=== PATIENT | female | born 1995 | race Caucasian/White ===

== ENCOUNTER 2024-01-12 12:30 | Inpatient (IN) | payer OTHER, SELFPAY ==
[2024-01-09 16:35] VITALS: BP 149/87
--- NOTE | 2024-01-09 17:03 | ED.GENMED ---
History of Present Illness
General
Chief Complaint: Abdominal Pain
Source: patient
Exam Limitations: none
Time Seen by Provider: 01/09/24 16:56
History of Present Illness
History of Present Illness:
See MDM
Past History
Past History
ED Past Medical History: None
ED Past Surgical History: Orthopedic (Groin surgery)
Social History
Tobacco: Smoker
Personal: Single
Phy Exam
Physical Exam
Physical Exam:
See MDM
Course
Orders/Labs/Results
Orders:
Orders
01/09/24 17:02
0.9% Sodium Chloride 1000 ml [Nss] 1,000 ml IV BOLUS
Ketorolac [Toradol] 30 mg IV NOW STA
Ondansetron Injectable [Zofran] 4 mg IV NOW STA
US Abdomen Complete/Upper Urgent
Comment:
Reason For Exam: RUQ pain
01/09/24 17:03
Test Result ONCE
01/09/24 17:12
Complete Blood Count/With Diff Urgent
Comprehensive Metabolic Panel Urgent
HCG, Serum Qualitative Screen Urgent
Lipase Urgent
Urinalysis Reflex To Culture Urgent
Date Specimen was Collected: 01/09/24
Time Specimen was Collected: 17:04
Urine Microscopic Reflex Cult Urgent
01/09/24 19:08
Consult Gastroenterology [GASTROINTESTINAL CONSULT] Routine
Consulting Provider: Nicola Wheat
Was physician already notified: Yes
Abnormal Lab Results
01/09/24
17:12
MCH 31.3 H pg
(27.0-31.0)
Absolute Neuts (auto) 7.8 H 10^3/uL
(1.4-6.5)
Absolute Lymphs (auto) 0.9 L 10^3/uL
(1.2-3.4)
Neutrophils % 84.2 H %
(42.2-75.2)
Lymphocytes % 10.1 L %
(20.5-51.1)
Carbon Dioxide 18 L mmol/L
(22-30)
Glucose 106 H mg/dl
(70-99)
Total Bilirubin 4.7 H mg/dl
(0.2-1.3)
AST 188 H U/L
(14-36)
ALT 396 H U/L
(0-35)
Alkaline Phosphatase 254 H U/L
(38-126)
Lipase 314 H U/L
(23-300)
Urine Ketones 3+ A
(Negative)
Urine Bilirubin 2+ A
(Negative)
Urine Urobilinogen 4+ A
(Neg - 1+)
Leukocyte Esterase Rfl Trace A
(Negative)
Urine Bacteria (Reflex) Few A
(Negative)
01/09/24 17:12
01/09/24 17:12
Vital Signs
Initial and Last Documented VS:
Initial Vital Signs
Temp Pulse Resp BP Pulse Ox
98.0 F 74 16 149/87 99
01/09/24 16:35 01/09/24 16:35 01/09/24 16:35 01/09/24 16:35 01/09/24 16:35
Last Documented Vital Signs
Temp Pulse Resp BP Pulse Ox
98.0 F 74 18 149/87 99
01/09/24 16:35 01/09/24 16:35 01/09/24 18:00 01/09/24 16:35 01/09/24 16:35
MDM/Problems Addressed
Differential Diagnosis Includes:
HPI and MDM Narrative:
28-year-old female presenting with upper abdominal pain, nausea, vomiting, back pain and discolored urine and stool. This has been going on for several days. She went to an outside hospital and was evaluated and received a chest x-ray and EKG.
She was sent home. Patient states she still having pain when she eats. She states her urine is dark and her stool is pale. On exam, she has significant right upper quadrant tenderness with localized rebound. We discussed that her symptoms are
more consistent with likely gallbladder pathology. Her lungs are clear. Her back pain is likely referred pain. Given her history and issues, will obtain right upper quadrant ultrasound, provide Toradol and Zofran and provide IV fluids.
Physical exam
General: Mildly uncomfortable
HEENT: protecting airway. Dry mucous membranes
Neck: appears supple
CV: No evidence of cyanosis
Resp: No accessory muscle use. Lungs clear
Abd: Non-distended. Point tenderness to right upper quadrant with localized rebound
Extremities: No deformities
Neuro: alert
Psych: Normal affect
Skin: Intact
Problems Addressed including Acute and Chronic Conditions affecting care:
1. [Right upper quadrant pain
Acuity: acute
Prognosis: stable
Details: Will obtain right upper quadrant ultrasound rule out gallbladder pathology. Patient given Toradol
2. Nausea and vomiting
Acuity: acute
Prognosis: stable
Details: Will give IV fluids and IV Zofran
Updates
Patient found to have elevated LFTs and bilirubin. Ultrasound consistent with possible acute calculus cholecystitis. Given the dilated common bile duct, this raises suspicion for choledocholithiasis. General surgery made aware who suggested admit
for MRCP and GI eval. GI made aware
Differential Diagnosis (but not limited to): Symptomatic cholelithiasis, acute calculus cholecystitis, pancreatitis
Testing considered: Abdominal CT
Drug therapy (if applicable): OTC meds, please see d/c instruction regarding Rx drugs
Amount and/or Complexity of Data Reviewed
Clinical info obtained from: Patient
External data reviewed: N/A
Labs I independently reviewed (but not limited to): Elevated LFTs
Radiology: Ultrasound port reviewed
Pulse Ox: not hypoxic
EKG independently reviewed: N/A
Blasting Worker: N/A
Critical Care: N/A
Risk of Complication:
Social Determinants of health: Good social support
Discussed with other providers: General surgeon, gastroenterology, hospitalist
Escalation of Care includes Admit/Obs: Given the concern for choledocholithiasis and acute cholecystitis, will admit for further evaluation
Occasional wrong word or 'sound a like' substitutions may have occurred due to the inherent limitations of voice recognition software. Read the chart carefully and recognize, using context, where substitutions have occurred.
*Critical Care Note
Total Time (30-74mins, 75-104mins- exclusive of procedures): Not Applicable
ED Attending Note
-
Portions of this chart may have been created with voice recognition software.� Occasional wrong word or��sound alike� substitutions may have occurred due to the inherent limitations of voice recognition software.
Discharge Plan
Departure
Patient Disposition: Admit
Date of Disposition: 01/09/24
Time of Disposition: 19:10
Presentation/result/management discussed w/ accepting MD/DO: Hospitalist
Discharge Problem:
Cholelithiasis, Choledocholithiasis
Prescriptions:
No Action
No Meds [No Current Medications]
0
Referrals:
NONE,* [Family Provider] -
Interventions
Interventions:
*Risk Screen - Suicide Last Done: 01/09/24 17:22
*General Assessment Last Done: 01/09/24 16:35
*Neglect/Abuse Screening Last Done: 01/09/24 17:22
ED- Fall Risk Assessment Last Done: 01/09/24 17:22
*ED COVID-19 Vaccine History Last Done: 01/09/24 16:35
WA-Omkcxl-Vxarmvlstv Assessment Last Done: 01/09/24 17:22
Discharge Date and Time
Print Language: TAJIK
[2024-01-09] MEDS: TORADOL 30 MG IV (17:11)
[2024-01-09] MEDS: NSS 1000 IV ×2 (17:11→21:13)
[2024-01-09] MEDS: ZOFRAN 4 MG IV (17:12)
[2024-01-09 17:23] LABS: % Basophils 0.6 % (0-2); % Eosinophils 0.4 % (0-6); % Immature Granulocytes 0.2 % (0-0.5); % Lymphocytes 10.1 % (20.5-51.1); % Monocytes 4.5 % (1.7-9.3); % Neutrophils 84.2 % (42.2-75.2); Absolute Basophils 0.1 10^3/uL (0-0.2); Absolute Lymphocytes 0.9 10^3/uL (1.2-3.4); Absolute Monocytes 0.4 10^3/uL (0.1-0.6); Absolute Neutrophils 7.8 10^3/uL (1.4-6.5); Hematocrit 39.7 % (37.0-47.0); Hemoglobin 13.6 g/dL (12.0-16.0); Mean Corp Hgb Conc. 34.3 g/dL (33.0-37.0); Mean Corpuscular Hgb 31.3 pg (27.0-31.0); Mean Corpuscular Volume 91.3 fL (81.0-99.0); Mean Platelet Volume 10.3 fL (7.4-10.4); Nucleated Red Blood Cells % 0 %; Platelet Count 328 10^3/uL (130-400); Red Blood Cell Count 4.35 10^6/uL (4.20-5.40); Red Cell Dist. Width 13.6 % (11.5-14.5); White Blood Cell Count 9.3 10^3/uL (4.8-10.8)
[2024-01-09 17:36] LABS: HCG, Serum Qualitative Screen Negative
[2024-01-09 17:50] LABS: ALT (SGPT) 396 U/L (0-35); AST (SGOT) 188 U/L (14-36); Albumin 4.8 g/dl (3.5-5.0); Alkaline Phosphatase 254 U/L (38-126); Blood Urea Nitrogen 7 mg/dl (7-17); Calcium 9.6 mg/dl (8.4-10.2); Carbon Dioxide 18 mmol/L (22-30); Chloride 104 mmol/L (98-107); Glucose 106 mg/dl (70-99); Lipase 314 U/L (23-300); Sodium 138 mmol/L (135-145); Total Bilirubin 4.7 mg/dl (0.2-1.3); Total Protein 7.4 g/dl (6.3-8.2); eGFR > 60.00
[2024-01-09 18:03] LABS: Urine Albumin Trace (Neg - Trace); Urine Bilirubin 2+ (Negative); Urine Character Clear (Clear); Urine Color Amber; Urine Glucose Negative (Negative); Urine Ketone 3+ (Negative); Urine Leukocyte Trace (Negative); Urine Nitrite Negative (Negative); Urine Occult Blood Negative (Negative); Urine Specific Gravity 1.025 (<1.030); Urine Urobilinogen 4+ (Neg - 1+)
[2024-01-09 18:29] LABS: Urine Mucus Few
[2024-01-09 18:30] LABS: Urine Bacteria Few (Negative); Urine Red Blood Cell 0-2 /HPF (0-2)
--- NOTE | 2024-01-09 19:17 | HPS.HSE ---
Family Physician
-
Family Physician: * NONE
Chief Complaint
-
abdominal pain, N/V
History of Present Illness
28F no significant PMHX seen at [facility] for evalauation of upper abdominal pain
- Increased pain with eating
- associate with nausea, vomiting, back pain and discolored urine and stool
- ongoing for several days.
Medical History
Past Medical History
Past Medical History: Reports None
Past Surgical History: Reports None
Social History
Tobacco: Smoker
Personal: Single
Family History
Family History: Not pertinent
Allergies / Home Medications
Allergies reflects when Allergies were last updated in [employer].
Home Medications with original date entered in [employer]
Allergy/Medication List:
Allergies
Allergy/AdvReac Type Severity Reaction Status Date / Time
No Known Allergies Allergy Verified 01/09/24 16:41
Home Medications
No Meds [No Current Medications] 0 05/26/12
Review of Systems
-
Constitutional: Reports No Symptoms
EENT: Reports No Symptoms
Respiratory: Reports No Symptoms
Cardiac: Reports No Symptoms
Abdomen/GI: Reports See HPI, Abdominal Pain, Nausea and Vomiting
: Reports No Symptoms
Musculoskeletal: Reports No Symptoms
Skin: Reports No Symptoms
Neurological: Reports No Symptoms
Endocrine: Reports No Symptoms
Hematologic/Lymphatic: Reports No Symptoms
Psych: Reports No Symptoms
Physical Exam
Vital Signs
Vital Signs
Temp Pulse Resp BP Pulse Ox
98.0 F 74 18 149/87 99
01/09/24 16:35 01/09/24 16:35 01/09/24 18:00 01/09/24 16:35 01/09/24 16:35
Physical Exam
General: Well Developed, Well Nourished, No Apparent Distress (not toxic looking ), Comfortable, Conversant and Other (Mildly uncomfortable)
HEENT: NormoCephalic, Moist mucous membranes and Atraumatic
Respiratory: Clear
Cardiac: S1/S2 and Regular Rhythm; No Murmur or Rub
GI: Soft, Non Distended, Normal Bowel Sounds and Tender ( Point tenderness to right upper quadrant with localized rebound); No Organomegaly
Rectal: Deferred by Provider
Musculoskeletal: No Clubbing, No Cyanosis and No Edema
Skin: No Rash
Neuro: Nonfocal/grossly intact
Psych: Calm
Laboratory Results
-
01/09/24 17:12
01/09/24 17:12
Laboratory Results
Total Bilirubin 4.7 mg/dl (0.2-1.3) H 01/09/24 17:12
AST 188 U/L (14-36) H 01/09/24 17:12
ALT 396 U/L (0-35) H 01/09/24 17:12
Alkaline Phosphatase 254 U/L (38-126) H 01/09/24 17:12
Lipase 314 U/L (23-300) H 01/09/24 17:12
Data Reviewed
-
Ultrasound: Report Reviewed by me
Lab Data: Labs Reviewed by me
Impression/Plan
-
Vital Signs
Temp Pulse Resp BP Pulse Ox
98.0 F 74 18 149/87 99
01/09/24 16:35 01/09/24 16:35 01/09/24 18:00 01/09/24 16:35 01/09/24 16:35
Laboratory Tests
01/09/24
17:12
WBC 9.3
Carbon Dioxide 18 L
Creatinine 0.6
eGFR > 60.00
Total Bilirubin 4.7 H
AST 188 H
ALT 396 H
Alkaline Phosphatase 254 H
Lipase 314 H
HCG, Qual Negative
US Abdomen Complete/Upper
1).There is cholelithiasis with mild thickening of the gallbladder wall to 3.5 mm suggesting possible cholecystitis
2). There is dilatation of the common duct to 10 mm with associated intrahepatic biliary dilatation suggesting choledocholithiasis.
No prior hospitalist admission: X
ASSESSMENT & PLAN
Biliary colic plus obstructive pattern abn LFT
Cholelithiasis
Concern for choledocholithiasis due to 10 mm CBD dilatation with associated intrahepatic biliary dilatation
Afebrile. Nl WCC
- Hold off ABx for now
- NPO after MN and IVF
- PRN narcotic analgesia plus PRN anti emetics
- trend T curve and CBC
- Trend LFTs and lipase
- for MRCP in AM
- GS consulted and suggest GI consult - ERCP in AM ?
DVT Px: SCD
Code: Full
Obs MS
[2024-01-09] MEDS: MORPHINE SULFATE 4 MG IV (19:19)
[2024-01-09 19:22] VITALS: BP 132/87
[2024-01-09 19:33] VITALS: BMI 23.5
[2024-01-09 20:15] VITALS: BP 114/72; BMI 23.1
[2024-01-09 23:10] VITALS: BP 109/63
[2024-01-09] MEDS: DILAUDID 0.5 MG IV (23:57)
[2024-01-10 07:54] VITALS: BP 112/63
[2024-01-10 08:11] LABS: INR 1.11; PT 14.1 Sec (11.4-14.6)
[2024-01-10 08:17] LABS: Hematocrit 33.6 % (37.0-47.0); Hemoglobin 11.3 g/dL (12.0-16.0); Mean Corp Hgb Conc. 33.6 g/dL (33.0-37.0); Mean Corpuscular Hgb 30.9 pg (27.0-31.0); Mean Corpuscular Volume 91.8 fL (81.0-99.0); Platelet Count 271 10^3/uL (130-400); Red Blood Cell Count 3.66 10^6/uL (4.20-5.40); Red Cell Dist. Width 13.8 % (11.5-14.5)
[2024-01-10 08:34] LABS: ALT (SGPT) 300 U/L (0-35); AST (SGOT) 128 U/L (14-36); Albumin 3.5 g/dl (3.5-5.0); Alkaline Phosphatase 194 U/L (38-126); Blood Urea Nitrogen 5 mg/dl (7-17); Calcium 8.7 mg/dl (8.4-10.2); Carbon Dioxide 20 mmol/L (22-30); Chloride 107 mmol/L (98-107); Estimated Creatinine Clearance > 125 ml/min; Glucose 99 mg/dl (70-99); Lipase 1961 U/L (23-300); Potassium 4.2 mmol/L (3.5-5.1); Sodium 137 mmol/L (135-145); Total Bilirubin 4.7 mg/dl (0.2-1.3); Total Protein 5.9 g/dl (6.3-8.2); eGFR > 60.00
[2024-01-10] MEDS: NSS 1000 IV (11:02)
--- NOTE | 2024-01-10 11:04 | W.PN.HOSP.TC ---
Addendum entered and electronically signed by Gildardo Gutierrez MD 01/10/24 13:21:
Updated patient and mother over the phone in details.
Addendum entered and electronically signed by Gildardo Gutierrez MD 01/10/24 11:32:
MRCP with finding
IMPRESSION:
1. CHOLEDOCHOLITHIASIS in the common bile duct.
2. EXTENSIVE CHOLELITHIASIS and 5.9 mm stone in the cystic duct.
3. Moderate intrahepatic and extrahepatic biliary dilatation with multiple biliary strictures mixed with regions of dilatation creating a 'beaded' appearance to the bile ducts. PRIMARY SCLEROSING CHOLANGITIS is a diagnostic possibility.
Alternatively, this could be secondary to acute or chronic infectious cholangitis.
Will start rocephin/flagyl
await further GI and GS recs
Original Note:
Today's Communication/Plan
-
Continue with IV fluids
Pain control
Trend CMP
Await further imaging data
Assessment / Plan
Assessment / Plan
Transaminitis likely secondary to biliary colic versus choledocholithiasis
Cholelithiasis
Concern for choledocholithiasis due to 10 mm CBD dilatation with associated intrahepatic biliary dilatation
Afebrile. Nl WCC
- Hold off ABx for now
- NPO
- PRN narcotic analgesia plus PRN anti emetics
- trend T curve and CBC
- Trend LFTs and lipase
- for MRCP today
- Lipase bumped-possibility of passing stone vs. obstruction. await further imaging data which will determine next steps
-
DVT Px: SCD
Code: Full
Anticipated Discharge: > 48 hours
Subjective/Interval History
-
Date of Service: January 10, 2024
States of epigastric and right upper quadrant abdominal pain
Objective Data
-
Labs:
Laboratory Results
01/10/24
05:43
WBC 4.0 L
Hgb 11.3 L
Hct 33.6 L
Plt Count 271
PT 14.1
INR 1.11
Sodium 137
Potassium 4.2
Chloride 107
Carbon Dioxide 20 L
BUN 5 L
Creatinine 0.5 L
Glucose 99
Calcium 8.7
Total Bilirubin 4.7 H
AST 128 H
ALT 300 H
Alkaline Phosphatase 194 H
Vital Signs:
Vital Signs
Temp Pulse Resp BP Pulse Ox
98.0 F 61 16 112/63 98
01/10/24 07:54 01/10/24 07:54 01/10/24 07:54 01/10/24 07:54 01/10/24 07:54
I&O
01/09/24 01/10/24 01/11/24
06:59 06:59 06:59
Intake Total 720 / 720
Balance 720 / 720
Physical Exam
-
General: Well Developed and No Apparent Distress
HEENT: Normocephalic, Atraumatic and Moist Mucous Membranes
Respiratory: Clear to Auscultation
Cardiac: Regular Rhythm and S1/S2; Negative Murmur, Rub or Gallop
GI: Soft, Nondistended, Normal Bowel Sounds and Tender (epigastric and RUQ ); Negative Organomegaly
Rectal: Deferred by Provider
Musculoskeletal: No Clubbing, No Cyanosis and No Edema
Skin: Negative Rash
Neuro: Awake, No Motor Deficits and Nonfocal/Grossly Intact
[2024-01-10] MEDS: STERILE WATER FOR INJECTION 10 ML IV (11:43)
[2024-01-10] MEDS: ROCEPHIN 1000 MG IV (11:44)
[2024-01-10] MEDS: FLAGYL 500 MG 100 IV ×2 (11:44→20:14)
--- NOTE | 2024-01-10 12:19 | CON.GS ---
Consultation
-
Requesting Provider: Jose De Jesus
Performing Provider: Ruth
Reason for Consultation: Abd pain
Medical History
-
Chief Complaint: Abd pain/back pain
History of Present Illness:
28F with acute onset epigastric pain radiating to her back, felt like squeezing pain wrapped around her upper body, denies f/c, endorses n/v as well as dark urine and pale stools. Pain began several days ago, seems to be worse with eating. She
describes a long history of intermittent back and chest pain going back to her teens. At various times when evaluated for these symptoms she has been diagnosed with pneumonitis and costochondritis. She denies history of frequent abd pain, diarrhea,
bloody stools, though the has at times in the past tried eliminating gluten, she is not sure if that made any difference for her.
Past Medical History
Past Medical History: Other (as per HPI)
Past Surgical History: Reviewed & Noncontributory
Social History
Tobacco: Smoker
Personal: Single
Employment: Employed
Family History
Family History: Reviewed & Noncontributory
Allergies / Home Medications
Allergy/AdvReac Type Severity Reaction Status Date / Time
No Known Allergies Allergy Verified 01/09/24 16:41
�Medication �Instructions �Recorded �Confirmed �Type
acetaminophen 500 mg tablet 500 mg PO Q6HPRN PRN mild pain 01/09/24 01/09/24 History
(Tylenol Extra Strength)
ibuprofen 200 mg tablet 200 mg PO Q6HPRN PRN mild pain 01/09/24 01/09/24 History
lidocaine 4 % topical patch 1 patch topical BIDPRN PRN mild 01/09/24 01/09/24 History
pain
Review of Systems
-
A 10 point review of systems was completed, and was negative except as per HPI.
Physical Exam
Vital Signs
Temp Pulse Resp BP Pulse Ox
98.0 F 61 16 112/63 98
09/01/24 07:54 01/10/24 07:54 01/10/24 07:54 01/10/24 07:54 01/10/24 07:54
01/09/24 01/10/24 01/11/24
06:59 06:59 06:59
Actual Weight 70.76 kg
Body Mass Index (BMI) 23.1
Lab Results
01/10/24 05:43
01/10/24 05:43
WBC 4.0 10^3/uL (4.8-10.8) L 01/10/24 05:43
Hgb 11.3 g/dL (12.0-16.0) L 01/10/24 05:43
Hct 33.6 % (37.0-47.0) L 01/10/24 05:43
Plt Count 271 10^3/uL (130-400) 01/10/24 05:43
Abs Immat Gran (auto) 0.0 10^3/uL (0-0.05) 01/09/24 17:12
Neutrophils % 84.2 % (42.2-75.2) H 01/09/24 17:12
Physical Exam
General: Well Developed, Well Nourished and No Apparent Distress
HEENT: Normocephalic and Anicteric
GI: Soft, Non Distended and Tender (mild ttp to epigastrium, less to RUQ)
Skin: Warm and Dry
Neuro: AO x 3
Psych: Calm
Data Reviewed
-
Ultrasound: Image Personally Visualized and interpreted and Report Reviewed by me
MRI: Image Personally Visualized and interpreted, Report Reviewed by me, Discussed with Physician, Discussed with Nurse and Discussed with Patient
Labs: Labs Reviewed by me
Assessment / Plan
-
28F with biliary pancreatitis and choledocholithiasis, with imaging suspicious for primary sclerosing cholangitis
AFVSS, pain is mild, denies n/v presently
No leukocytosis
Tbili 4.7 unchanged from yesterday
LFTs elevated, improving
Lipase 1900 today trending up from yesterday
US with stones, CBD 10mm, no GBWT, no PCF
MRCP with cholelithiasis, choledocholithiasis, intra and extra hepatic biliary ductal dilation with interposed strictures, suggestive of PSC
Plan:
IV abx
NPO/IVF
Rec GI consult for ERCP
Trend labs
Will follow
[2024-01-10] MEDS: TORADOL 10 MG IV ×2 (12:54→20:25)
--- NOTE | 2024-01-10 13:09 | CM ---
CM following re: discharge planning.
Reviewed pt's chart, met with pt and pt's father at bedside.
Pt is a 28 year old female, admitted with OBS status and primary dx of biliary colic.
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
D/C plan: home with no needs. family to transport at discharge.
CM will follow with discharge plan updates as hospitalization progresses
--- NOTE | 2024-01-10 13:57 | CON.GI ---
Consultation
-
Date/Time Consultation Requested: 01/10/2024
Date/Time Consultation Performed: 01/10/2024
Performing Provider: Nicola Wheat
Reason for Consultation: choledocholithiasis
Medical History
Chief Complaint / HPI
Chief Complaint: choledocholithiasis
History of Present Illness:
Patient is a 28-year-old female with no significant history presenting with abdominal pain associated with nausea and vomiting. Her pain is worse with eating and also has associated back pain. Denies history of pancreatitis. She drinks socially
and her last alcohol was about a week ago.
Past Medical History
Past Medical History: None
Past Surgical History: None
Social History
Tobacco: Smoker
Alcohol: Occasional
Allergies / Home Medications
Allergy/AdvReac Type Severity Reaction Status Date / Time
No Known Allergies Allergy Verified 01/09/24 16:41
�Medication �Instructions �Recorded
acetaminophen 500 mg tablet 500 mg PO Q6HPRN PRN mild pain 01/09/24
(Tylenol Extra Strength)
ibuprofen 200 mg tablet 200 mg PO Q6HPRN PRN mild pain 01/09/24
lidocaine 4 % topical patch 1 patch topical BIDPRN PRN mild 01/09/24
pain
Review of Systems
Vital Signs
Temp Pulse Resp BP Pulse Ox
98.0 F 61 16 112/63 98
01/10/24 07:54 01/10/24 07:54 01/10/24 07:54 01/10/24 07:54 01/10/24 07:54
Physical Exam
Exam
General: Well Developed and Well Nourished
HEENT: Normocephalic
Respiratory: Clear
Cardiac: S1/S2
GI: Soft, Non Distended, Normal Bowel Sounds and Tender (mild tenderness in epigastric region)
Results
WBC 4.0 10^3/uL (4.8-10.8) L 01/10/24 05:43
Hgb 11.3 g/dL (12.0-16.0) L 01/10/24 05:43
Hct 33.6 % (37.0-47.0) L 01/10/24 05:43
MCV 91.8 fL (81.0-99.0) 01/10/24 05:43
Plt Count 271 10^3/uL (130-400) 01/10/24 05:43
Absolute Neuts (auto) 7.8 10^3/uL (1.4-6.5) H 01/09/24 17:12
PT 14.1 Sec (11.4-14.6) 01/10/24 05:43
INR 1.11 01/10/24 05:43
Sodium 137 mmol/L (135-145) 01/10/24 05:43
Potassium 4.2 mmol/L (3.5-5.1) 01/10/24 05:43
Chloride 107 mmol/L (98-107) 01/10/24 05:43
Carbon Dioxide 20 mmol/L (22-30) L 01/10/24 05:43
BUN 5 mg/dl (7-17) L 01/10/24 05:43
Creatinine 0.5 mg/dL (0.6-1.0) L 01/10/24 05:43
Calcium 8.7 mg/dl (8.4-10.2) 01/10/24 05:43
Total Bilirubin 4.7 mg/dl (0.2-1.3) H 01/10/24 05:43
AST 128 U/L (14-36) H 01/10/24 05:43
ALT 300 U/L (0-35) H 01/10/24 05:43
Alkaline Phosphatase 194 U/L (38-126) H 01/10/24 05:43
Lipase 1961 U/L (23-300) H* 01/10/24 05:43
Diagnostic Image Results:
Prior GI Procedures:
EGD:
Colonoscopy:
Assessment / Plan
-
Patient is a 28-year-old female with no significant history presenting with abdominal pain associated with nausea and vomiting. Her pain is worse with eating and also has associated back pain. Denies history of pancreatitis. She drinks socially
and her last alcohol was about a week ago.
Impression / Rec:
1. Gallstone pancreatitis with choledocholithiasis - pt p/w abdominal pain, n/v, back pain. RUQ US showed multiple cholelithiasis with dilated CBD up to 10 mm. Her lipase is elevated at > 3X ULN. She also has elevated LFT with bilirubin of 4.7
and alk phos in 200s. MRCP showed cholelithiasis, choledocholithiasis, and moderate intra/extrahepatic dilation w/ beading appearance of bile duct. Will need ERCP for stone extraction and evaluation of her biliary system. Will plan for tomorrow
(if bili worsens) vs 01/11 if LFT is stable. CLD today.
2. ?PSC - MRCP showed beaded appearance of her bile duct. Will evaluate further with ERCP. She denies symptoms suggestive of UC.
Total Time Spent with Patient (in minutes): 55
-
-
Thank you for consultation and allowing me to participate in the patient's care. Please call the radioisotope production operator GI physician during the after hours with any questions or concerns.
[2024-01-10 15:03] VITALS: BP 112/66
[2024-01-10 23:00] VITALS: BP 116/70
[2024-01-11] MEDS: NSS 1000 IV ×2 (00:33→12:52)
[2024-01-11] MEDS: FLAGYL 500 MG 100 IV (03:37)
[2024-01-11 06:48] LABS: % Basophils 0.8 % (0-2); % Eosinophils 2.3 % (0-6); % Immature Granulocytes 0.2 % (0-0.5); % Lymphocytes 28.6 % (20.5-51.1); % Monocytes 9.1 % (1.7-9.3); Absolute Eosinophils 0.1 10^3/uL (0-0.7); Absolute Lymphocytes 1.4 10^3/uL (1.2-3.4); Absolute Monocytes 0.4 10^3/uL (0.1-0.6); Absolute Neutrophils 2.9 10^3/uL (1.4-6.5); Hemoglobin 10.7 g/dL (12.0-16.0); Mean Corp Hgb Conc. 33.4 g/dL (33.0-37.0); Mean Corpuscular Hgb 30.2 pg (27.0-31.0); Mean Corpuscular Volume 90.4 fL (81.0-99.0); Mean Platelet Volume 10.8 fL (7.4-10.4); Nucleated Red Blood Cells % 0 %; Platelet Count 263 10^3/uL (130-400); Red Blood Cell Count 3.54 10^6/uL (4.20-5.40); Red Cell Dist. Width 13.9 % (11.5-14.5); White Blood Cell Count 4.8 10^3/uL (4.8-10.8)
[2024-01-11 07:00] VITALS: BP 120/79
[2024-01-11 07:19] LABS: ALT (SGPT) 241 U/L (0-35); AST (SGOT) 74 U/L (14-36); Albumin 3.3 g/dl (3.5-5.0); Alkaline Phosphatase 206 U/L (38-126); Blood Urea Nitrogen 5 mg/dl (7-17); Calcium 8.8 mg/dl (8.4-10.2); Carbon Dioxide 20 mmol/L (22-30); Chloride 109 mmol/L (98-107); Direct Bilirubin 1.5 mg/dl (0.0-0.4); Estimated Creatinine Clearance > 125 ml/min; Glucose 96 mg/dl (70-99); Potassium 4.1 mmol/L (3.5-5.1); Sodium 139 mmol/L (135-145); Total Bilirubin 3.1 mg/dl (0.2-1.3); Total Protein 5.8 g/dl (6.3-8.2); eGFR > 60.00
[2024-01-11] MEDS: TYLENOL 650 MG PO (07:50)
--- NOTE | 2024-01-11 09:37 | W.PN.GS2 ---
Today's Communication / Plan
-
Needs ERCP and brushings.
OR this admission, tentatively added on for tomorrow for a laparoscopic cholecystectomy.
Assessment / Plan
-
This is a 28-year-old adopted female who presents with acute onset epigastric pain radiating to her back in the setting of multiple episodes of postprandial abdominal pain concerning for biliary colic found to have gallstone pancreatitis as well as
choledocholithiasis and cholelithiasis will as well as imaging concerning for PSC.
Continue to trend LFTs and lipase.
Recommend a ERCP, timing per GI.
Will plan for a laparoscopic cholecystectomy this admission, patient tentatively added onto the OR schedule tomorrow.
Okay for clear liquids pending GI plans, n.p.o. at midnight.
No active infection at this time, will defer to antibiotics per primary
General Surgery will continue to follow
Risks/Benefits/Alternatives, expected postoperative course and possible complications (bleeding, infection, injury to surrounding structures, acute/chronic pain) discussed at length. Patient wishes to proceed with surgery. All questions answered.
Consent obtained.
I spent roughly 60 minutes in total for the care of this patient today including direct patient care and counseling, reviewing labs, imaging, coordination of care, as well as documentation.
Time Spent
Total Time Spent with Patient (in minutes): 35
Subjective Data
-
Date of Service: January 11, 2024
Interval Events:
No acute events overnight. Slept well. Pain Controlled. Denies Nausea/Vomiting, +bowel function. Tolerating diet.
Objective Data
-
Intake and Output
01/10/24 01/11/24 01/12/24
06:59 06:59 06:59
Intake Total 720 / 720 2760 / 2760
Balance 720 / 720 2760 / 2760
Intake:
Oral fluids 120 / 120 1040 / 1040
IV fluids (Total) 600 / 600 1410 / 1410
IV piggybacks 310 / 310
Other:
Number of approximated MODERATE 2 3
amounts of urine
Vital Signs
Temp Pulse Resp BP Pulse Ox
98.1 F 78 16 120/79 97
01/11/24 07:00 01/11/24 07:00 01/11/24 07:00 01/11/24 07:00 01/11/24 09:15
Lab Results
01/11/24 05:50
01/11/24 05:50
Calcium 8.8 mg/dl (8.4-10.2) 01/11/24 05:50
Total Bilirubin 3.1 mg/dl (0.2-1.3) H 01/11/24 05:50
Direct Bilirubin 1.5 mg/dl (0.0-0.4) H 01/11/24 05:50
AST 74 U/L (14-36) H 01/11/24 05:50
ALT 241 U/L (0-35) H 01/11/24 05:50
Alkaline Phosphatase 206 U/L (38-126) H 01/11/24 05:50
Total Protein 5.8 g/dl (6.3-8.2) L 01/11/24 05:50
Albumin 3.3 g/dl (3.5-5.0) L 01/11/24 05:50
Physical Exam
-
GENERAL/NEURO: Awake, Alert, no distress
CHEST: Unlabored breathing on RA
ABDOMEN: Soft, Non-Tender, Non-Distended
--- NOTE | 2024-01-11 10:21 | W.PN.HOSP.TC ---
Today's Communication/Plan
-
IVF
NPO
ERCP
lap james this admit
Assessment / Plan
Assessment / Plan
Transaminitis likely secondary to biliary colic and choledocholithiasis
Cholelithiasis
Gallstone pancreatitis
Choledocholithiasis
Afebrile. Nl WCC
- surgery correspondence noted. Discontinue antibiotics.
- NPO
- PRN narcotic analgesia plus PRN anti emetics
- trend T curve and CBC
- Trend LFTs and lipase
- MRCP noted with MRCP with choledocholithiasis and common bile duct with extensive cholelithiasis and 5.9 mm stone in the cystic duct. Also showing Moderate intrahepatic and extrahepatic biliary dilatation with multiple biliary strictures mixed
with regions of dilatation creating a 'beaded' appearance to the bile ducts. PRIMARY SCLEROSING CHOLANGITIS is a diagnostic possibility. Alternatively, this could be secondary to acute or chronic infectious cholangitis.
- Plan for ERCP tentative later today vs. tom.
- General Surgery plan for or for tentative laparoscopi Cholecystectomy this admission
- Gi recs
DVT Px: SCD
Code: Full
Anticipated Discharge: > 48 hours
Subjective/Interval History
-
Date of Service: January 11, 2024
mild abd pain
some nausea but no vomiting
Objective Data
-
Labs:
Laboratory Results
01/11/24
05:50
WBC 4.8
Hgb 10.7 L
Hct 32.0 L
Plt Count 263
Sodium 139
Potassium 4.1
Chloride 109 H
Carbon Dioxide 20 L
BUN 5 L
Creatinine 0.5 L
Glucose 96
Calcium 8.8
Total Bilirubin 3.1 H
AST 74 H
ALT 241 H
Alkaline Phosphatase 206 H
Vital Signs:
Vital Signs
Temp Pulse Resp BP Pulse Ox
98.1 F 78 16 120/79 97
01/11/24 07:00 01/11/24 07:00 01/11/24 07:00 01/11/24 07:00 01/11/24 09:15
I&O
01/10/24 01/11/24 01/12/24
06:59 06:59 06:59
Intake Total 720 / 720 2760 / 2760
Balance 720 / 720 2760 / 2760
Physical Exam
-
General: Well Developed and No Apparent Distress
HEENT: Normocephalic, Atraumatic and Moist Mucous Membranes
Respiratory: Clear to Auscultation
Cardiac: Regular Rhythm and S1/S2; Negative Murmur, Rub or Gallop
GI: Soft, Nondistended, Normal Bowel Sounds and Tender (epigastric and RUQ ); Negative Organomegaly
Rectal: Deferred by Provider
Musculoskeletal: No Clubbing, No Cyanosis and No Edema
Skin: Negative Rash
Neuro: Awake, Alert, Oriented, AO x 3, No Motor Deficits and Nonfocal/Grossly Intact
Psych: Calm
--- NOTE | 2024-01-11 14:08 | W.PN.GI.CBS2 ---
Today's Communication / Plan
-
ercp tomorrow
Assessment / Plan
-
Patient is a 28-year-old female with no significant history presenting with abdominal pain associated with nausea and vomiting. Her pain is worse with eating and also has associated back pain. Denies history of pancreatitis. She drinks socially
and her last alcohol was about a week ago.
Impression / Rec:
1. Gallstone pancreatitis with choledocholithiasis - pt p/w abdominal pain, n/v, back pain. RUQ US showed multiple cholelithiasis with dilated CBD up to 10 mm. Her lipase is elevated at > 3X ULN. She also has elevated LFT with bilirubin of 4.7
and alk phos in 200s. MRCP showed cholelithiasis, choledocholithiasis, and moderate intra/extrahepatic dilation w/ beading appearance of bile duct.
LFT not worsening today, will plan for ERCP tomorrow.
2. ?PSC - MRCP showed beaded appearance of her bile duct. Will evaluate further with ERCP. she denies history of bloody diarrhea but does seem to have chronic digestive issues including intermittent diarrhea. Her family history is unknown as she
was adopted. She is a smoker thus her symptoms and may have been masked. Depending on cholangiogram if bleeding appearance is noted then may perform cholangioscopy. May also need colonoscopy as an outpatient.
Total Time Spent with Patient (in minutes): 35
Subjective
Subjective
Date of Service: January 11, 2024
Pain is improving
Objective
Data Reviewed
Laboratory Data:
Laboratory Results
01/11/24 05:50
01/11/24 05:50
Laboratory Results
PT 14.1 Sec (11.4-14.6) 01/10/24 05:43
INR 1.11 01/10/24 05:43
Total Bilirubin 3.1 mg/dl (0.2-1.3) H 01/11/24 05:50
AST 74 U/L (14-36) H 01/11/24 05:50
ALT 241 U/L (0-35) H 01/11/24 05:50
Alkaline Phosphatase 206 U/L (38-126) H 01/11/24 05:50
Lipase 1961 U/L (23-300) H* 01/10/24 05:43
Vital Signs and I&O:
Vital Signs
Temp Pulse Resp BP Pulse Ox
98.1 F 78 16 120/79 97
01/11/24 07:00 01/11/24 07:00 01/11/24 07:00 01/11/24 07:00 01/11/24 09:15
I&O
01/10/24 01/11/24 01/12/24
06:59 06:59 06:59
Intake Total 720 / 720 2760 / 2760
Balance 720 / 720 2760 / 2760
[2024-01-11 15:00] VITALS: BP 107/65
[2024-01-11] MEDS: ZOFRAN 4 MG IV (16:19)
[2024-01-11] MEDS: FLUSH (NSS) 1 FLUSH IV (16:20)
[2024-01-11] MEDS: DILAUDID 0.5 MG IV (20:04)
[2024-01-11 23:29] VITALS: BP 109/77
[2024-01-12] MEDS: NSS 1000 IV ×2 (01:13→17:46)
[2024-01-12 07:00] VITALS: BP 115/76
[2024-01-12 08:53] LABS: % Basophils 1.1 % (0-2); % Eosinophils 2.2 % (0-6); % Immature Granulocytes 0.2 % (0-0.5); % Lymphocytes 24.3 % (20.5-51.1); % Monocytes 6.9 % (1.7-9.3); % Neutrophils 65.3 % (42.2-75.2); Absolute Basophils 0.1 10^3/uL (0-0.2); Absolute Eosinophils 0.1 10^3/uL (0-0.7); Absolute Lymphocytes 1.1 10^3/uL (1.2-3.4); Absolute Monocytes 0.3 10^3/uL (0.1-0.6); Absolute Neutrophils 2.9 10^3/uL (1.4-6.5); Hematocrit 31.9 % (37.0-47.0); Mean Corp Hgb Conc. 34.5 g/dL (33.0-37.0); Mean Corpuscular Hgb 30.8 pg (27.0-31.0); Mean Corpuscular Volume 89.4 fL (81.0-99.0); Mean Platelet Volume 10.8 fL (7.4-10.4); Nucleated Red Blood Cells % 0 %; Platelet Count 279 10^3/uL (130-400); Red Blood Cell Count 3.57 10^6/uL (4.20-5.40); Red Cell Dist. Width 13.7 % (11.5-14.5); White Blood Cell Count 4.5 10^3/uL (4.8-10.8)
[2024-01-12 09:09] LABS: ALT (SGPT) 210 U/L (0-35); AST (SGOT) 73 U/L (14-36); Albumin 3.4 g/dl (3.5-5.0); Alkaline Phosphatase 236 U/L (38-126); Blood Urea Nitrogen 3 mg/dl (7-17); Calcium 8.9 mg/dl (8.4-10.2); Carbon Dioxide 20 mmol/L (22-30); Chloride 109 mmol/L (98-107); Estimated Creatinine Clearance > 125 ml/min; Glucose 93 mg/dl (70-99); Potassium 4.1 mmol/L (3.5-5.1); Sodium 139 mmol/L (135-145); Total Bilirubin 3.3 mg/dl (0.2-1.3); Total Protein 5.9 g/dl (6.3-8.2); eGFR > 60.00
--- NOTE | 2024-01-12 10:12 | W.PN.GS2 ---
Today's Communication / Plan
-
-- ERCP
Assessment / Plan
-
This is a 28-year-old adopted female who presents with acute onset epigastric pain radiating to her back in the setting of multiple episodes of postprandial abdominal pain concerning for biliary colic found to have gallstone pancreatitis as well as
choledocholithiasis and cholelithiasis will as well as imaging concerning for PSC.
Clinically stable. GI consult noted. Plan for ERCP today.
-- ERCP
-- Okay for clear liquids following ERCP, NPO PM
-- No active infection at this time, will defer to antibiotics per primary
-- General Surgery will continue to follow, recommend lap james during this admission, timing TBD
Subjective Data
-
Date of Service: January 12, 2024
No new complaints. Abdominal pain improved, but persists. Describes epigastric and more back pain. Associated nausea and vomiting. Has had intermittent episodes for years now. Most recent attack began on Thursday.
Objective Data
-
Intake and Output
01/11/24 01/12/24 01/13/24
06:59 06:59 06:59
Intake Total 2760 / 2760 1200 / 1200
Balance 2760 / 2760 1200 / 1200
Intake:
Oral fluids 1040 / 1040 240 / 240
IV fluids (Total) 1410 / 1410 960 / 960
IV piggybacks 310 / 310
Other:
Number of approximated MODERATE 3 2
amounts of urine
Vital Signs
Temp Pulse Resp BP Pulse Ox
98.2 F 71 12 115/76 98
01/12/24 07:00 01/12/24 07:00 01/12/24 07:00 01/12/24 07:00 01/12/24 07:00
Lab Results
01/12/24 07:36
01/12/24 07:36
Calcium 8.9 mg/dl (8.4-10.2) 01/12/24 07:36
Total Bilirubin 3.3 mg/dl (0.2-1.3) H 01/12/24 07:36
Direct Bilirubin 1.5 mg/dl (0.0-0.4) H 01/11/24 05:50
AST 73 U/L (14-36) H 01/12/24 07:36
ALT 210 U/L (0-35) H 01/12/24 07:36
Alkaline Phosphatase 236 U/L (38-126) H 01/12/24 07:36
Total Protein 5.9 g/dl (6.3-8.2) L 01/12/24 07:36
Albumin 3.4 g/dl (3.5-5.0) L 01/12/24 07:36
Physical Exam
-
Gen: NAD
Abd: soft, tender in epigastrium, ND, non-peritoneal
--- NOTE | 2024-01-12 11:05 | W.PN.UPDATE ---
Update Note
Progress Note Update
Pt is NOT a smoker
[2024-01-12 13:01] VITALS: BP 115/76; BP 129/77
[2024-01-12 13:15] VITALS: BP 129/80
[2024-01-12 13:27] VITALS: BP 132/80
--- NOTE | 2024-01-12 14:50 | CM ---
CM reviewed chart, patient for ERCP today. CM met with patient bedside, with significant other present. Patient reports no needs to CM at this time. CM will continue to follow for all discharge planning needs
Plan; home no needs.
--- NOTE | 2024-01-12 15:26 | W.PN.HOSP.TC ---
Today's Communication/Plan
-
Status post ERCP.
Assessment / Plan
Assessment / Plan
Transaminitis likely secondary to biliary colic and choledocholithiasis
Cholelithiasis
Gallstone pancreatitis
Choledocholithiasis
Afebrile. Nl WCC
Status post ERCP with stone extraction, sphincterectomy and stent placement on 01/11.
Observe off antibiotics
Trend LFT
Clear liquid diet
Hopefully for laparoscopic cholecystectomy on 01/12
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
Biopsy obtained at ERCP
Monitor LFT
DVT Px: SCD
Code: Full
Anticipated Discharge: > 48 hours
Subjective/Interval History
-
Date of Service: January 12, 2024
Objective Data
-
Labs:
Laboratory Results
01/12/24
07:36
WBC 4.5 L
Hgb 11.0 L
Hct 31.9 L
Plt Count 279
Sodium 139
Potassium 4.1
Chloride 109 H
Carbon Dioxide 20 L
BUN 3 L
Creatinine 0.5 L
Glucose 93
Calcium 8.9
Total Bilirubin 3.3 H
AST 73 H
ALT 210 H
Alkaline Phosphatase 236 H
Vital Signs:
Vital Signs
Temp Pulse Resp BP Pulse Ox
98.3 F 64 15 132/80 99
01/12/24 13:31 01/12/24 13:27 01/12/24 13:27 01/12/24 13:27 01/12/24 13:27
I&O
01/11/24 01/12/24 01/13/24
06:59 06:59 06:59
Intake Total 2760 / 2760 1200 / 1200 100 / 100
Balance 2760 / 2760 1200 / 1200 100 / 100
Physical Exam
-
General: Well Developed and No Apparent Distress
HEENT: Normocephalic, Atraumatic and Moist Mucous Membranes
Respiratory: Clear to Auscultation
Cardiac: Regular Rhythm and S1/S2; Negative Murmur, Rub or Gallop
GI: Soft, Nondistended, Normal Bowel Sounds and Tender (epigastric and RUQ ); Negative Organomegaly
Rectal: Deferred by Provider
Musculoskeletal: No Clubbing, No Cyanosis and No Edema
Skin: Negative Rash
Neuro: Awake, Alert, Oriented, AO x 3, No Motor Deficits and Nonfocal/Grossly Intact
Psych: Calm
[2024-01-12 15:49] VITALS: BP 110/77
[2024-01-12 23:30] VITALS: BP 109/59
[2024-01-13] MEDS: TORADOL 10 MG IV ×2 (01:17→11:00)
[2024-01-13] MEDS: NSS 1000 IV ×2 (06:17→11:28)
[2024-01-13 06:50] LABS: % Basophils 0.5 % (0-2); % Eosinophils 1.2 % (0-6); % Immature Granulocytes 0.1 % (0-0.5); % Lymphocytes 28.7 % (20.5-51.1); % Monocytes 6.4 % (1.7-9.3); % Neutrophils 63.1 % (42.2-75.2); Absolute Eosinophils 0.1 10^3/uL (0-0.7); Absolute Lymphocytes 2.1 10^3/uL (1.2-3.4); Absolute Monocytes 0.5 10^3/uL (0.1-0.6); Absolute Neutrophils 4.6 10^3/uL (1.4-6.5); Mean Corp Hgb Conc. 34.4 g/dL (33.0-37.0); Mean Corpuscular Hgb 30.7 pg (27.0-31.0); Mean Corpuscular Volume 89.4 fL (81.0-99.0); Mean Platelet Volume 11.2 fL (7.4-10.4); Nucleated Red Blood Cells % 0 %; Platelet Count 315 10^3/uL (130-400); Red Blood Cell Count 3.58 10^6/uL (4.20-5.40); Red Cell Dist. Width 13.3 % (11.5-14.5); White Blood Cell Count 7.3 10^3/uL (4.8-10.8)
[2024-01-13 07:00] VITALS: BP 121/75
[2024-01-13] MEDS: DILAUDID 0.5 MG IV (07:08)
[2024-01-13 07:17] LABS: ALT (SGPT) 174 U/L (0-35); AST (SGOT) 55 U/L (14-36); Albumin 3.2 g/dl (3.5-5.0); Alkaline Phosphatase 210 U/L (38-126); Blood Urea Nitrogen 4 mg/dl (7-17); Calcium 8.7 mg/dl (8.4-10.2); Carbon Dioxide 20 mmol/L (22-30); Chloride 112 mmol/L (98-107); Estimated Creatinine Clearance > 125 ml/min; Glucose 88 mg/dl (70-99); Potassium 3.5 mmol/L (3.5-5.1); Sodium 139 mmol/L (135-145); Total Bilirubin 1.9 mg/dl (0.2-1.3); Total Protein 5.7 g/dl (6.3-8.2); eGFR > 60.00
--- NOTE | 2024-01-13 09:44 | W.PN.UPDATE ---
Update Note
Progress Note Update
Pt scheduled 03/[address] Wheat for follow up and Dr. ambrocio Do 02/09 for IBD eval. appt added to discharge.
--- NOTE | 2024-01-13 10:54 | W.PN.GS2 ---
Today's Communication / Plan
-
Await resolution of abd pain
eventual CCY
Assessment / Plan
-
This is a 28-year-old adopted female who presents with acute onset epigastric pain radiating to her back in the setting of multiple episodes of postprandial abdominal pain concerning for biliary colic found to have gallstone pancreatitis as well as
choledocholithiasis and cholelithiasis will as well as imaging concerning for PSC.
Clinically stable. ERCP yesterday with scarring throughout biliary tree, choledocholithiasis, patent cystic duct. TTP to epigastrium today.
-- Will benefit from CCY when pancreatitis resolves
-- Okay for clear liquids, NPO PM
-- Hold abx
-- F/U path, unlikely malignancy considering lack of risk factors
-- General Surgery will continue to follow, recommend lap james during this admission, timing TBD
Subjective Data
-
Date of Service: January 13, 2024
Taking toradol and dilaudid with good relief of abd pain, denies n/v, tearful this am when discussing home situation
Objective Data
-
Intake and Output
01/12/24 01/13/24 01/14/24
06:59 06:59 06:59
Intake Total 1200 / 1200 1420 / 1420
Balance 1200 / 1200 1420 / 1420
Intake:
Oral fluids 240 / 240 1320 / 1320
IV fluids (Total) 960 / 960 100 / 100
LR 100 / 100
Other:
Number of approximated MODERATE 2
amounts of urine
How many times incontinent 1
MODERATE amount urine
Vital Signs
Temp Pulse Resp BP Pulse Ox
98.1 F 75 16 121/75 94
01/13/24 07:00 01/13/24 07:00 01/13/24 07:00 01/13/24 07:00 01/13/24 07:00
Lab Results
01/13/24 04:36
01/13/24 04:36
Calcium 8.7 mg/dl (8.4-10.2) 01/13/24 04:36
Total Bilirubin 1.9 mg/dl (0.2-1.3) H D 01/13/24 04:36
Direct Bilirubin 1.5 mg/dl (0.0-0.4) H 01/11/24 05:50
AST 55 U/L (14-36) H 01/13/24 04:36
ALT 174 U/L (0-35) H 01/13/24 04:36
Alkaline Phosphatase 210 U/L (38-126) H 01/13/24 04:36
Total Protein 5.7 g/dl (6.3-8.2) L 01/13/24 04:36
Albumin 3.2 g/dl (3.5-5.0) L 01/13/24 04:36
Physical Exam
-
Gen: NAD
Abd: soft, nd, there is mild-mod ttp to epigastium
--- NOTE | 2024-01-13 12:32 | CM ---
Patient seen bedside with mom, reports no needs to CM at this time or upon discharge. CM will continue to follow for all discharge planning needs.
Plan; home no needs when stable.
[2024-01-13 15:23] VITALS: BP 112/65
--- NOTE | 2024-01-13 17:02 | W.PN.HOSP.TC ---
Today's Communication/Plan
-
Follow LFTs.
Pending improved abdominal pain presumably from gallstone pancreatitis scheduled for laparoscopic cholecystectomy on 01/13.
Monitor closely off antibiotics
GI/surgery input appreciated.
Assessment / Plan
Assessment / Plan
Transaminitis likely secondary to biliary colic and choledocholithiasis
Cholelithiasis
Gallstone pancreatitis
Choledocholithiasis
Afebrile. Nl WCC
Status post ERCP with stone extraction, sphincterectomy and stent placement on 01/11.
Observe off antibiotics
Trend LFT
Clear liquid diet
Hopefully for laparoscopic cholecystectomy on 01/12
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
Biopsy obtained at ERCP
Monitor LFT
DVT Px: SCD
Code: Full
Anticipated Discharge: 24 - 48 hours
Subjective/Interval History
-
Date of Service: January 13, 2024
Objective Data
-
Labs:
Laboratory Results
01/13/24
04:36
WBC 7.3
Hgb 11.0 L
Hct 32.0 L
Plt Count 315
Sodium 139
Potassium 3.5
Chloride 112 H
Carbon Dioxide 20 L
BUN 4 L
Creatinine 0.5 L
Glucose 88
Calcium 8.7
Total Bilirubin 1.9 H D
AST 55 H
ALT 174 H
Alkaline Phosphatase 210 H
Vital Signs:
Vital Signs
Temp Pulse Resp BP Pulse Ox
98.1 F 69 16 112/65 99
01/13/24 15:23 01/13/24 15:23 01/13/24 15:23 01/13/24 15:23 01/13/24 15:23
I&O
01/12/24 01/13/24 01/14/24
06:59 06:59 06:59
Intake Total 1200 / 1200 1420 / 1420
Balance 1200 / 1200 1420 / 1420
Physical Exam
-
General: Well Developed and No Apparent Distress
HEENT: Normocephalic, Atraumatic and Moist Mucous Membranes
Respiratory: Clear to Auscultation
Cardiac: Regular Rhythm and S1/S2; Negative Murmur, Rub or Gallop
GI: Soft, Nondistended, Normal Bowel Sounds and Tender (epigastric and RUQ ); Negative Organomegaly
Rectal: Deferred by Provider
Musculoskeletal: No Clubbing, No Cyanosis and No Edema
Skin: Negative Rash
Neuro: Awake, Alert, Oriented, AO x 3, No Motor Deficits and Nonfocal/Grossly Intact
Psych: Calm
--- NOTE | 2024-01-13 18:09 | W.PN.GI.CBS2 ---
Today's Communication / Plan
-
GI s/o
Assessment / Plan
-
Patient is a 28-year-old female with no significant history presenting with abdominal pain associated with nausea and vomiting. Her pain is worse with eating and also has associated back pain. Denies history of pancreatitis. She drinks socially
and her last alcohol was about a week ago.
Impression / Rec:
1. Gallstone pancreatitis with choledocholithiasis - pt p/w abdominal pain, n/v, back pain. RUQ US showed multiple cholelithiasis with dilated CBD up to 10 mm. Her lipase is elevated at > 3X ULN. She also has elevated LFT with bilirubin of 4.7
and alk phos in 200s. MRCP showed cholelithiasis, choledocholithiasis, and moderate intra/extrahepatic dilation w/ beading appearance of bile duct.
2. ?PSC - MRCP showed beaded appearance of her bile duct. Will evaluate further with ERCP. she denies history of bloody diarrhea but does seem to have chronic digestive issues including intermittent diarrhea. Her family history is unknown as she
was adopted.
ERCP yesterday, stone extracted, cholangioscopy showed mild stenosis in hilar/distal CBD, abnormal mucosa/scarring suggestive of possible sclerosing dz. Bx. Stent placed, bili better today, had some abdo pain several hours post procedure but is
improving. Check IgG4 for IgG4-related sclerosing cholangitis. Will need f/u with me as OP. GI will s/o, call with questions.
Total Time Spent with Patient (in minutes): 35
Subjective
Subjective
Date of Service: January 13, 2024
Had some abdo pain after procedure, feeling better today
Objective
Data Reviewed
Laboratory Data:
Laboratory Results
01/13/24 04:36
01/13/24 04:36
Laboratory Results
PT 14.1 Sec (11.4-14.6) 01/10/24 05:43
INR 1.11 01/10/24 05:43
Total Bilirubin 1.9 mg/dl (0.2-1.3) H D 01/13/24 04:36
AST 55 U/L (14-36) H 01/13/24 04:36
ALT 174 U/L (0-35) H 01/13/24 04:36
Alkaline Phosphatase 210 U/L (38-126) H 01/13/24 04:36
Lipase 1961 U/L (23-300) H* 01/10/24 05:43
Vital Signs and I&O:
Vital Signs
Temp Pulse Resp BP Pulse Ox
98.1 F 69 16 112/65 99
01/13/24 15:23 01/13/24 15:23 01/13/24 15:23 01/13/24 15:23 01/13/24 15:23
I&O
01/12/24 01/13/24 01/14/24
06:59 06:59 06:59
Intake Total 1200 / 1200 1420 / 1420
Balance 1200 / 1200 1420 / 1420
[2024-01-13 23:10] VITALS: BP 121/77
[2024-01-14] VITALS (12 sets, daily range): BP systolic 112–140; BP diastolic 63–91
[2024-01-14] MEDS: NSS 1000 IV ×2 (00:57→13:47)
[2024-01-14 07:49] LABS: ALT (SGPT) 162 U/L (0-35); AST (SGOT) 73 U/L (14-36); Albumin 3.1 g/dl (3.5-5.0); Alkaline Phosphatase 177 U/L (38-126); Blood Urea Nitrogen 3 mg/dl (7-17); Calcium 8.7 mg/dl (8.4-10.2); Carbon Dioxide 21 mmol/L (22-30); Chloride 108 mmol/L (98-107); Estimated Creatinine Clearance > 125 ml/min; Glucose 88 mg/dl (70-99); Potassium 3.8 mmol/L (3.5-5.1); Sodium 141 mmol/L (135-145); Total Bilirubin 1.6 mg/dl (0.2-1.3); Total Protein 5.5 g/dl (6.3-8.2); eGFR > 60.00
--- NOTE | 2024-01-14 08:52 | W.PN.GS2 ---
Today's Communication / Plan
-
`
Assessment / Plan
-
Assessment: 28-year-old female who presents with acute onset epigastric pain radiating to her back in the setting of multiple episodes of postprandial abdominal pain concerning for biliary colic found to have gallstone pancreatitis as well as
choledocholithiasis and cholelithiasis will as well as imaging concerning for PSC.
Clinically stable. ERCP yesterday with scarring throughout biliary tree, choledocholithiasis - path bx unremarkable
Reviewed with patient history and workup to date as outlined. We discussed operative as well as nonoperative management options.
In the setting of gallstones and gallstone mediated pancreatitis Ms. Wilcox would like to proceed with cholecystectomy.
Laparoscopic cholecystectomy with possible cholangiogram was reviewed in detail including operative technique utilizing diagrams and alternative management options. The potential benefits and risks of the procedure were reviewed in detail, including
but not limited to infectious or wound healing complications, bleeding, bile leak, injury to biliary tree, iatrogenic injury to surrounding viscera and post cholecystectomy syndrome. Reviewed the typical postoperative recovery.
Any of the patient's concerns or questions were fully addressed.
Plan: Patient on OR schedule for lap james with possible cholangiogram
N.p.o.
IV fluids
Await OR availability
Subjective Data
-
Date of Service: January 14, 2024
pt seen and examined
abdominal pain improved
awaiting james today, offers no additional concerns or questions
Objective Data
-
Intake and Output
01/13/24 01/14/24 01/15/24
06:59 06:59 06:59
Intake Total 1420 / 1420 630 / 630
Balance 1420 / 1420 630 / 630
Intake:
Oral fluids 1320 / 1320 630 / 630
IV fluids (Total) 100 / 100
LR 100 / 100
Other:
Number of approximated MODERATE 2
amounts of urine
How many times incontinent 1
MODERATE amount urine
Vital Signs
Temp Pulse Resp BP Pulse Ox
98.3 F 68 14 112/63 98
01/14/24 07:00 01/14/24 07:00 01/14/24 07:00 01/14/24 07:00 01/14/24 07:00
Lab Results
01/13/24 04:36
01/14/24 06:05
Calcium 8.7 mg/dl (8.4-10.2) 01/14/24 06:05
Total Bilirubin 1.6 mg/dl (0.2-1.3) H 01/14/24 06:05
Direct Bilirubin 1.5 mg/dl (0.0-0.4) H 01/11/24 05:50
AST 73 U/L (14-36) H 01/14/24 06:05
ALT 162 U/L (0-35) H 01/14/24 06:05
Alkaline Phosphatase 177 U/L (38-126) H 01/14/24 06:05
Total Protein 5.5 g/dl (6.3-8.2) L 01/14/24 06:05
Albumin 3.1 g/dl (3.5-5.0) L 01/14/24 06:05
Physical Exam
-
NAD AAOx3
ABD: soft, ND, minimal TTP, no R/R/G
--- NOTE | 2024-01-14 10:18 | CM ---
CM reviewed chart, for radha ramirez today. CM met with patient bedside, reports no needs to CM at this time. CM will continue to follow for all discharge planning needs.
Plan; home no needs.
[2024-01-14] MEDS: NSS IV (10:45)
--- NOTE | 2024-01-14 10:55 | W.SUR.PREOP ---
Pre-Operative Surgical Note
-
I have examined this patient prior to the performance of the scheduled procedure.
The patient's condition is unchanged from the time of the current History and
Physical and the patient is able to undergo the scheduled procedure.
--- NOTE | 2024-01-14 13:09 | W.IMMPOSTOP ---
Addendum entered and electronically signed by Warren Denise MD 01/14/24 13:23:
#[id number]
Original Note:
Surgical Immed Post Op Note
-
Primary Surgeon: Camelia
Assisting Surgeon: Deborah CID
Pre-op Diagnosis: GS Pancreatitis with choledocholithiasis and biliary strictures; gallstones
Post-op Diagnosis: GS Pancreatitis with choledocholithiasis and biliary strictures; gallstones
Procedure Performed: Lap Desriee with IOC
Anesthesia Type: GETA + 0.25% Marcaine
Specimen / Cultures: GB
Estimated Blood Loss: 12mL
Complications: none immediate
Operative Findings: Physiologically distended gallbladder with floppy mesentery attachment to liver. Dilated cystic duct. Gallbladder full of stones. Intraoperative cholangiogram to confirm identified anatomy without additional abnormalities and
confirming good positioning and patency of recently placed common bile duct stent. Cystic duct divided/controlled with Endo JORGE hu 30 mm articulating stapler. Gallbladder removed off liver bed otherwise intact. Extracted at epigastric port site.
Plan: Routine postoperative care with dietary advancement as tolerated to low-fat and supportive care. Okay for discharge from surgical standpoint when tolerating p.o. intake, pain controlled.
Left voicemail message on primary contact, patient's partner Davie at cell phone number listed
--- NOTE | 2024-01-14 15:37 | PTCARENOTE ---
Patient received from PACU in bed; IVF infusing; Surgical site assessed with MERCHANDISE DISTRIBUTOR, four laparoscopic sites and one puncture site open to air with glue; Patient states pain is okay and tolerable for her; Patient denies nausea/vomiting at this
time; Patient ambulated to bathroom upon arrival; Patient now back in bed; Call osuna within reach; Assessment ongoing
--- NOTE | 2024-01-14 17:32 | PTCARENOTE ---
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 His return text states that he is driving and have the patient call his office tomorrow for work note. Patient informed and was agreeable.
[2024-01-15 01:07] LABS: IgG Subclass 4 34 mg/dL (1-123)
--- NOTE | 2024-01-15 10:08 | W.DS.TRANS ---
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
-
Discharge Instructions:
Discharge Diagnosis/Procedures Gallstone pancreatitis, choledocholithiasis,
bile duct stricture. ERCP sphincterotomy stone
extraction and stent placement. Laparoscopic
cholecystectomy.
Diet Low Fat,As tolerated
Additional Diets Smaller portions/meals initially after surgery
is abdominal bloating and distention are common
for the first few days
Activity No strenuous activity
Additional Activity No lifting over 15 to 20 pounds for 3 weeks
postop.
Driving Restrictions No driving for 24 hours
Bathing Restrictions OK to Shower
Wound Care Glue at surgical sites typically peels off in 2
to 3 weeks
Instructions:
Stand-Alone Forms: Return to Work
Changes to Home Medications: Yes
Discharge Medications:
DC Medications w/original date entered in [facility]
acetaminophen 500 mg tablet (Tylenol Extra Strength) 500 mg PO Q6HPRN PRN mild pain 01/09/24
oxycodone 5 mg tablet 5 mg PO Q4HPRN PRN severe pain #14 tabs 01/14/24
Home Medication Changes
Oxycodone
Pending Results: No
== END 2024-01-14 17:45 | disposition home or self-care (01) | DRG 417 ==
LOC: 2 SOUTH 12:30
PROVIDERS: Hospitalist; Surgery; ADMITTING PHYSICIAN Internal Medicine; ATTENDING PHYSICIAN Internal Medicine; CONSULT PHYSICIAN Internal Medicine Gastroenterology; CONSULT PHYSICIAN Surgery; EMERGENCY PHYSICIAN Student in an Organized Health Care Education/Training Program
PROC: 0F798DZ Dilation of Common Bile Duct with Intraluminal Device, Via Natural or Artificial Opening Endoscopic (ICD-10-PCS; 2024-01-12)
PROC: 0FB78ZX Excision of Common Hepatic Duct, Via Natural or Artificial Opening Endoscopic, Diagnostic (ICD-10-PCS; 2024-01-12)
PROC: 0FB98ZX Excision of Common Bile Duct, Via Natural or Artificial Opening Endoscopic, Diagnostic (ICD-10-PCS; 2024-01-12)
PROC: 0FC98ZZ Extirpation of Matter from Common Bile Duct, Via Natural or Artificial Opening Endoscopic (ICD-10-PCS; 2024-01-12)
PROC: 0FT44ZZ Resection of Gallbladder, Percutaneous Endoscopic Approach (ICD-10-PCS; 2024-01-14)
PROC: BF502Z0 Other Imaging of Bile Ducts using Fluorescing Agent, Intraoperative (ICD-10-PCS; 2024-01-14)
DX: K80.70 Calculus of gallbladder and bile duct without cholecystitis without obstruction (principal); K85.10 Biliary acute pancreatitis without necrosis or infection; F17.200 Nicotine dependence, unspecified, uncomplicated
CPT/HCPCS: 88304; 88305; 74181; 74300; 74330; 76000; 76700; 80053; 81003; 81015; 82248; 82787; 83690; 84703; 85025; 85027; 85610; 96361; 96374; 96375; 99285; C1769; C2625